=== PATIENT | female | born 1990 | race Caucasian/White ===

== ENCOUNTER 2018-01-29 11:24 | Emergency (ER) | payer OTHER, MEDICAID ==
[~2018-01-29] VITALS: Ht 165.1 cm; Wt 53.1 kg
[~2018-01-29 11:24] MED LIST: BACTRIM DS TAB1 EACH PO; CEPHALEXIN 500500 M3 PO; DIFLUCAN150 MG PO; HYDROCODONE-AP1 EAC6 PO; IBUPROFEN 600600 M1 PO; MIRALAX17 GM PO; MUPIROCIN22 GM TOP; NAPROSYN500 MG PO; NOHOMEMEDICATIONS; NORFLEX100 MG PO; TYLENOL325 MG PO
[2018-01-29 11:35] VITALS: BP 115/76
[2018-01-29] MEDS ORDERED: KEFLEX500 M1 PO (11:59)
== END 2018-01-29 12:05 | disposition home or self-care (01) ==
LOC: M.ERS 11:24
DX: L02.411 Cutaneous abscess of right axilla (principal); Z90.49 Acquired absence of other specified parts of digestive tract

== ENCOUNTER 2020-08-06 21:31 | Emergency (ER) | payer OTHER, MEDICAID ==
[~2020-08-06] VITALS: Ht 165.1 cm; Wt 53.5 kg
[~2020-08-06 21:31] MED LIST changes: +KEFLEX500 M1 PO
[2020-08-06] MEDS ORDERED: PROZAC20 M1 PO (21:42)
[2020-08-06] MEDS ORDERED: PROAIR HFA8.5 GM INH (21:42)
[2020-08-06] MEDS ORDERED: STIOLTO RESPIMAT4 GM INH (21:43)
[2020-08-06 23:56] VITALS: BP 148/96
== END 2020-08-06 23:58 | disposition left against medical advice (07) ==
LOC: M.ERS 21:31
DX: M53.82 Other specified dorsopathies, cervical region (principal); Z90.49 Acquired absence of other specified parts of digestive tract